=== PATIENT | female | born 1965 ===

== ENCOUNTER 2017-04-16 13:38 | Day surgery (SDC) | payer OTHER ==
[2017-04-16] MEDS ORDERED: PERCOCET 5-3251 EACH PO (18:21)
[2017-04-16] MEDS ORDERED: CLINDAMYCIN HC150 MG PO (18:23)
== END 2017-04-16 22:15 | disposition home or self-care (01) ==
LOC: CIR.AMB 13:38
DX: G57.32 Lesion of lateral popliteal nerve, left lower limb (principal); M79.605 Pain in left leg